=== PATIENT | male | born 1985 | race American Indian/Alaskan Native ===

== ENCOUNTER 2019-03-06 14:58 | Emergency (ER) | payer SELFPAY ==
[2019-03-06 15:09] VITALS: BP 100/75
--- NOTE | 2019-03-06 16:00 | Event Note ---
ED Screening Note Date of service: 03/06/19 Time: 15:56 ED Screening Note: This is a 33 y.o. M. that presents to low back pain for 1 week. PMH of chronic low back pain. Reports radiating pain. Patient states this is the first time it every lasted this long. Reports a flare once every year. Spouse states patient fell which aggravated back. This initial assessment/diagnostic orders/clinical plan/treatment(s) is/are subject to change based on patients health status, clinical progression and re- assessment by fellow clinical providers in the ED. Further treatment and workup at subsequent clinical providers discretion. Patient/guardian urged not to elope from the ED as their condition may be serious if not clinically assessed and managed. Initial orders include: CT of L-spine Labs
[2019-03-06 16:57] LABS: Alanine Aminotransferase 13 units/L (7-56); Albumin 4.8 g/dL (3.9-5); BUN/Creatinine Ratio 14; Blood Urea Nitrogen 14 mg/dL (9-20); Calcium 9.5 mg/dL (8.4-10.2); Hemolysis Index 27
[2019-03-06 17:02] LABS: Bilirubin,Urine NEG (Negative); Blood,Urine NEG (Negative); Color,Urine Yellow (Yellow); Mucus,Urine 3+ /HPF; Protein,Urine <15 mg/dL mg/dL (Negative)
--- NOTE | 2019-03-06 17:22 | Cat Scan Report ---
CT LUMBAR SPINE WITHOUT CONTRAST INDICATION / CLINICAL INFORMATION: low back pain. Symptoms lateralize to the right. TECHNIQUE: Axial CT images were obtained through the lumbar spine. Sagittal and coronal reformatted images were produced. All CT scans at this location are performed using CT dose reduction for ALARA by means of a utomated exposure control. COMPARISON: None available. FINDINGS: ALIGNMENT: There is a mild leftward curvature of the lumbar spine. Hopper angle is about 12 degrees. Ot herwise normal alignment is maintained throughout. VERTEBRAE: No indication of fracture or other osseous abnormality on evaluation of the lumbar vertebr ae. DISC SPACES: Fairly well-maintained LEVEL BY LEVEL ANALYSIS: L1-2:No abnormality. L2-3:No abnormality. L3-4: Small central and left paracentral disc protrusion is associated with mild thecal sac deformity . Central spinal canal and neuroforamina are adequately maintained. L4-5: There is a right paracentral and lateral recess disc protrusion superimposed on mild broad-base d disc bulge. There is compression of the thecal sac and possible compression of the right L5 nerve r oot in its lateral recess. Central spinal canal and neuroforamina are adequate in size. L5-S1: No abnormality. SPINAL CANAL: There is no indication of central canal stenosis. SACRUM:Several left-sided sacral lesions are identified. An 8mm diameter well-circumscribed lytic les ion is seen in the left S1 sacral ala. Well-circumscribed lytic lesions with surrounding sclerosis ar e identified in the left S2 sacral ala. These are incompletely evaluated. Follow-up study to include CT sacrum is suggested to further characterize these findings. PARASPINAL SOFT TISSUES: No abnormality IMPRESSION: 1. Small central and left paracentral disc protrusion at L3-4. 2. Moderate right paracentral and lateral recess disc protrusion L4-5. 3. Several lytic lesions and mixed sclerotic and lytic lesions are demonstrated in the left sacral al a at S1 and S2 respectively. These are incompletely evaluated on current study. Consider CT sacrum fo r further characterization of these findings. Signer Name: Marquis Wynne MD Signed: 03/06/2019 5:18 PM Workstation Name: [id number]
[2019-03-06] MEDS ORDERED: KETOROLAC 30 MG/1 ML INJ IM ONE (17:38)
[2019-03-06] MEDS ORDERED: LIDOCAINE-MPF (1%) 10 MG/1 ML VIAL 5 ML INFILTRATI ONE (17:40)
--- NOTE | 2019-03-06 17:42 | Emergency Department Report ---
ED Back Pain/Injury HPI - General Chief Complaint: Back Pain/Injury Stated Complaint: BACK PAIN Time Seen by Provider: 03/06/19 15:55 Source: patient Limitations: No Limitations - History of Present Illness Initial Comments: This is a 33-year-old male presents to ED complaining of lower back pain for the past week. She does admit that he has had some nausea for the past couple of days. Patient denies urinary symptoms, fall, injury or trauma to the back. He denies fevers/chills/ MD Complaint: back pain (1 week) - Related Data Previous Rx's Medication Instructions Recorded Last Taken Type Cyclobenzaprine HCl [FLEXERIL] 10 mg PO TID PRN #12 tablet 01/09/13 Unknown Rx Hydrocodone Bit/Acetaminophen 1 each PO Q6H PRN #14 tablet 01/09/13 Unknown Rx [Lortab 10-500 mg] Prednisone 40 mg PO QDAY #10 tablet 01/09/13 Unknown Rx Cyclobenzaprine [Flexeril] 10 mg PO QHS PRN #20 tablet 03/06/19 Unknown Rx Ibuprofen [Motrin 800 MG tab] 800 mg PO TID #30 tablet 03/06/19 Unknown Rx Allergies Allergy/AdvReac Type Severity Reaction Status Date / Time No Known Allergies Allergy Verified 01/09/13 01:12 ED Review of Systems ROS: Stated complaint: BACK PAIN Other details as noted in HPI Comment: All other systems reviewed and negative ED Back Pain Physical Exam - Exam General: Vital signs noted. No distress. Alert and acting appropriately. Back/Abdomen: No Abdominal Tenderness, No Perithoracic Tenderness, No Perilumbar Tenderness, No Sacroiliac Tenderness, No Flank Tenderness, No Straight Leg Raise Pain Neuro: Yes Normal Sensation, Yes Normal DTR's, Yes Normal Gait, No Motor Weakness ED Course Vital Signs 03/06/19 15:08 Temperature 98.6 F Pulse Rate 103 H Respiratory 16 Rate Blood Pressure 100/75 O2 Sat by Pulse 99 Oximetry Ed Back Pain Tests - Tests Tests: Normal X Rays, Abnormal UA ED Medical Decision Making - Lab Data Result diagrams: 03/06/19 16:21 - Radiology Data Radiology results: report reviewed, image reviewed CT LUMBAR SPINE WITHOUT CONTRAST INDICATION / CLINICAL INFORMATION: low back pain. Symptoms lateralize to the right. TECHNIQUE: Axial CT images were obtained through the lumbar spine. Sagittal and coronal reformatted images were produced. All CT scans at this location are performed using CT dose red uction for ALARA by means of automated exposure control. COMPARISON: None available. FINDINGS: ALIGNMENT: There is a mild leftward curvature of the lumbar spine. Hopper angle is about 12 degrees. Otherwise normal alignment is maintained throughout. VERTEBRAE: No indication of fracture or other osseous abnormality on evaluation of the lumbar vertebrae. DISC SPACES: Fairly well-maintained LEVEL BY LEVEL ANALYSIS: L1-2:No abnormality. L2-3:No abnormality. L3-4: Small central and left paracentral disc protrusion is associated with mild thecal sac deformity. Central spinal canal and neuroforamina are adequately maintained. L4-5: There is a right paracentral and lateral recess disc protrusion superimposed on mild broad- based disc bulge. There is compression of the thecal sac and possible compression of the right L5 nerve root in its lateral recess. Central spinal canal and neuroforamina are adequate in size. L5-S1: No abnormality. SPINAL CANAL: There is no indication of central canal stenosis. SACRUM:Several left-sided sacral lesions are identified. An 8mm diameter well-circumscribed lytic lesion is seen in the left S1 sacral ala. Well-circumscribed lytic lesions with surrounding sclerosis are identified in the left S2 sacral ala. These are incompletely evaluated. Follow-up study to include CT sacrum is suggested to further characterize these findings. PARASPINAL SOFT TISSUES: No abnormality IMPRESSION: 1. Small central and left paracentral disc protrusion at L3-4. 2. Moderate right paracentral and lateral recess disc protrusion L4-5. 3. Several lytic lesions and mixed sclerotic and lytic lesions are demonstrated in the left sacral ala at S1 and S2 respectively. These are incompletely evaluated on current study. Consider CT sacrum for further characterization of these findings. Signer Name: Marquis Wynne MD Signed: 03/06/2019 5:18 PM Workstation Name: [id number] Transcribed By: Dictated By: Marquis Wynne MD Electronically Authenticated By: Marquis Wynne MD Signed Date/Time: 03/06/19 1718 - Medical Decision Making 33-year-old male who presents to ED with left sided flank pain and lower back pain. Patient had no spinal tenderness during exam. Patient's pain is most likely secondary to muscular or mild kidney infection.. Labs are within normal limits, no white count. CT scan of the lumbar shows no acute findings Recommended patient to follow-up with orthopedic doctor. Referrals given. Patient received Motrin and Flexeril for her lower back muscle spasms and pain Critical care attestation.: If time is entered above; I have spent that time in minutes in the direct care of this critically ill patient, excluding procedure time. ED Disposition Clinical Impression: Low back strain, Low back pain, Flank pain Disposition: TO HOME OR SELFCARE Is pt being admited?: No Does the pt Need Aspirin: No Condition: Stable Instructions: Muscle Strain (ED) Additional Instructions: Make sure to follow up with the primary care physician as discussed. Take all your medications as you've been prescribed. If you have any worsening symptoms or develop new symptoms please return to ED immediately. Prescriptions: Cyclobenzaprine [Flexeril] 10 mg PO QHS PRN #20 tablet PRN Reason: Muscle Spasm Ibuprofen [Motrin 800 MG tab] 800 mg PO TID #30 tablet Referrals: [facility] [Outside] - 3-5 Days [facility] [Outside] - 3-5 Days ROBERTO VARGAS MD [Staff Physician] - 3-5 Days Forms: Work/School Release Form(ED) Time of Disposition: 18:06
== END 2019-03-06 18:48 | disposition home or self-care (01) ==
LOC: ED 14:58
DX: S39.012A Strain of muscle, fascia and tendon of lower back, initial encounter (principal); R10.9 Unspecified abdominal pain; X58.XXXA Exposure to other specified factors, initial encounter; Y93.89 Activity, other specified; Y92.89 Other specified places as the place of occurrence of the external cause; Y99.8 Other external cause status
CPT/HCPCS: 36415; 72131; 80053; 81001; 87086; 96372; 99284; J0696; J1885

== ENCOUNTER 2019-03-24 13:10 | Emergency (ER) | payer SELFPAY ==
[2019-03-24 15:40] VITALS: BP 121/80
--- NOTE | 2019-03-24 15:46 | Emergency Department Report ---
Chief Complaint: Upper Respiratory Infection Stated Complaint: MIGRAINE FOR 7 DAYS,COLD Time Seen by Provider: 03/24/19 15:40 - HPI History of Present Illness: 33 y/o male comes in reporting he has running nose, cough, and constipation. Has not taking anything for his running nose or constipation. Reports that his headache responds to Excedrin but has not taking anything today. Denies any N/V/D. No fever.or chills. - Exam Vital Signs: Vital Signs 03/24/19 13:14 Temperature 98.5 F Pulse Rate 115 H Respiratory 16 Rate Blood Pressure 121/80 O2 Sat by Pulse 97 Oximetry Physical Exam: alert and orient times 3 NAD Non toxic Chest CTAB no coughing Heart RRR no tachycardia no murmurs Abdomen Soft non tender no guarding. Ambulatory without diff. MSE screening note: Focused history and physical exam performed. Due to findings the following was ordered: 33 y/o male comes in reporting he has running nose, cough, and constipation. Has not taking anything for his running nose or constipation. Reports that his headache responds to Excedrin but has not taking anything today. Denies any N/V/D. No fever.or chills. Recommend over the counter Claritan flonase and miralax. ED Disposition for MSE Disposition: Z MED SCREENING EXAM-LEFT Is pt being admited?: No Does the pt Need Aspirin: No Condition: Stable Additional Instructions: Recommend over the counter Claritan flonase and miralax. Referrals: [facility] [Outside] - 3-5 Days [facility] [Provider Group] - 3-5 Days Forms: Work/School Release Form(ED)
== END 2019-03-24 15:43 | disposition left against medical advice (07) ==
LOC: ED 13:10
DX: R05 Cough (principal); K59.00 Constipation, unspecified; J34.89 Other specified disorders of nose and nasal sinuses
CPT/HCPCS: 99281